=== PATIENT | male | born 1990 | race Caucasian/White ===

== ENCOUNTER 2018-01-23 21:53 | Emergency (ER) | payer OTHER ==
[2018-01-23 22:14] VITALS: O2SAT 96
[2018-01-23] MEDS ORDERED: TYLENOL EXTRA STRENGTH 500 MG ONE (22:21)
[2018-01-23] MEDS: TYLENOL EXTRA STRENGTH 500 MG PO STA (22:22)
--- NOTE | 2018-01-23 22:50 | ERPHSYRPT ---
- History of Present Illness Time Seen by Provider: 01/23/18 22:43 Source: patient Exam Limitations: no limitations Patient Subjective Stated Complaint: pt alert and oriented, asnwers questions approp. pt ambulatory with steady gait noted. respirations nonlabored with lungs cta. skin pink, hot and dry. abd soft and nontender to light palpation. redness noted to throat Triage Nursing Assessment: pt states he has had fever up to 104 topday. states he vomitied once this morning and has had a sore throat. Physician History: The patient is a 27-year-old male with a friend complaining of a sore throat since waking up this morning. He also had a fever of 104 today. He took ibuprofen this morning and again this evening. He denies cough. He vomited once this morning but has felt okay since then. Timing/Duration: gradual onset, this morning Severity: moderate ENT Location: throat Prearrival Treatment: over the counter meds Modifying Factors: Improves With: nothing Associated Symptoms: fever, sore throat Allergies/Adverse Reactions: shellfish derived Allergy (Verified 03/24/13 10:54) Hx Tetanus, Diphtheria Vaccination/Date Given: Yes Hx Influenza Vaccination/Date Given: No Hx Pneumococcal Vaccination/Date Given: No Immunizations Up to Date: Yes - Review of Systems Constitutional: Fever Eyes: No Symptoms Ears, Nose, & Throat: Throat Pain, Painful Swallowing Respiratory: No Cough, No Dyspnea Cardiac: No Chest Pain, No Edema, No Syncope Abdominal/Gastrointestinal: No Abdominal Pain, No Nausea, No Vomiting, No Diarrhea Genitourinary Symptoms: No Dysuria Musculoskeletal: No Back Pain, No Neck Pain Skin: No Rash Neurological: No Dizziness, No Focal Weakness, No Sensory Changes Psychological: No Symptoms Endocrine: No Symptoms Hematologic/Lymphatic: No Symptoms Immunological/Allergic: No Symptoms All Other Systems: Reviewed and Negative - Past Medical History Pertinent Past Medical History: No - Past Surgical History Past Surgical History: Yes Neuro Surgical History: No Pertinent History Cardiac: No Pertinent History Respiratory: No Pertinent History Gastrointestinal: No Pertinent History Genitourinary: No Pertinent History Musculoskeletal: Other Male Surgical History: No Pertinent History Other Surgical History: repair right forearm artery - Social History Smoking Status: Former smoker Exposure to second hand smoke: Yes Drug Use: none Patient Lives Alone: No - Nursing Vital Signs Nursing Vital Signs: Initial Vital Signs Temperature 102.0 F 01/23/18 22:06 Pulse Rate 126 H 01/23/18 22:06 Respiratory Rate 20 01/23/18 22:06 Blood Pressure 140/84 01/23/18 22:06 O2 Sat by Pulse Oximetry 96 01/23/18 22:06 Pain Scale Pain Intensity 4 - Physical Exam General Appearance: no apparent distress, alert Eye Exam: bilateral eye: PERRL, EOMI Ear Exam: bilateral ear: auricle normal Nasal Exam: normal inspection Throat Exam: tonsillar exudate, tonsillar swelling Neck Exam: supple Cardiovascular/Respiratory Exam: normal breath sounds, regular rate/rhythm Abdominal Exam: non-tender, soft Neurologic Exam: alert, oriented x 3, sensation nml, No motor deficits Skin Exam: normal color, warm, dry SpO2 Interpretation: normal SpO2: 96 Oxygen Delivery: Room Air Ordered Tests: Medication Summary Discontinued Medications Generic Name Dose Route Start Last Admin Trade Name Conorq PRN Reason Stop Dose Admin Acetaminophen 1,000 mg 01/23/18 22:19 01/23/18 22:22 Tylenol Extra Strength 500 Mg PO 01/23/18 22:20 1,000 mg STAT STA Administration Acetaminophen Confirm 01/23/18 22:21 Tylenol Extra Strength 500 Mg Administered 01/23/18 22:22 Dose 1,000 mg .ROUTE .[place] Lab/Rad Data: Laboratory Results 01/23/18 Range/Units 22:35 Group A Strep Antibody NEGATIVE (NEGATIVE) - Progress Progress: improved Counseled pt/family regarding: lab results, diagnosis, need for follow-up - Departure Time of Disposition: 23:13 Departure Disposition: Home Clinical Impression: Acute pharyngitis Condition: Stable Critical Care Time: No Referrals: LAURIE PETERS [Primary Care Provider] - Additional Instructions: You have viral pharyngitis. The rapid strep test was negative. You were given Tylenol in the ER. Continue with Tylenol 1000 mg and ibuprofen 800 mg every 8 hours as needed for pain. Gargle with warm salt water as often as you want for comfort. Follow-up with your primary medical doctor in one to 2 days if no improvement.
[2018-01-23 23:38] VITALS: BP 108/70; PULSE 108
== END 2018-01-23 23:45 | disposition home or self-care (01) ==
LOC: ED 21:53
DX: J02.9 Acute pharyngitis, unspecified (principal)
CPT/HCPCS: 87651; 99283; A9270-GY